=== PATIENT | female | born 1950 | race Caucasian/White ===

== ENCOUNTER 2017-10-30 13:45 | Inpatient (IN) | payer OTHER ==
[~2017-10-30] VITALS: Ht 162.6 cm; Wt 90.7 kg
[2017-10-30] MEDS ORDERED: LIPITOR40 MG PO (15:15)
[2017-10-30] MEDS ORDERED: LEVO-T50 MCG PO (15:15)
[2017-10-30] MEDS ORDERED: AVAPRO300 MG PO (15:15)
[2017-11-07] MEDS ORDERED: INTESTINEX680 M1 PO (08:04)
[2017-11-07] MEDS ORDERED: OXYC1TAB9 PO (08:04)
== END 2017-11-07 11:39 | disposition home or self-care (01) | DRG 331 ==
LOC: O/R 11-03 06:25 → SURG 11-03 06:25 → SURH 11-03 12:45 → SURG 11-03 15:46
PROVIDERS: Surgery
PROC: 0DTN4ZZ Resection of Sigmoid Colon, Percutaneous Endoscopic Approach (ICD-10-PCS; 2017-11-03)
PROC: 0DTQ4ZZ Resection of Anus, Percutaneous Endoscopic Approach (ICD-10-PCS; 2017-11-03)
PROC: 07TC4ZZ Resection of Pelvis Lymphatic, Percutaneous Endoscopic Approach (ICD-10-PCS; 2017-11-03)
PROC: 0D1N4Z4 Bypass Sigmoid Colon to Cutaneous, Percutaneous Endoscopic Approach (ICD-10-PCS; 2017-11-03)
PROC: 0WUF4JZ Supplement Abdominal Wall with Synthetic Substitute, Percutaneous Endoscopic Approach (ICD-10-PCS; 2017-11-03)
PROC: 0DTP4ZZ Resection of Rectum, Percutaneous Endoscopic Approach (ICD-10-PCS; principal; 2017-11-03 12:45)
DX: C19 Malignant neoplasm of rectosigmoid junction (principal); R59.0 Localized enlarged lymph nodes; K43.2 Incisional hernia without obstruction or gangrene

== ENCOUNTER 2018-12-22 06:15 | Day surgery (SDC) | payer OTHER ==
[~2018-12-22 06:15] MED LIST: AVAPRO300 MG PO; INTESTINEX680 M1 PO; LEVO-T50 MCG PO; LIPITOR40 MG PO; OXYC1TAB9 PO
== END 2018-12-22 10:55 | disposition home or self-care (01) ==
LOC: AMB-ENDOS 06:15
DX: C20 Malignant neoplasm of rectum (principal)

== ENCOUNTER 2020-02-22 06:00 | Day surgery (SDC) | payer OTHER | END 2020-02-22 10:50 | disposition home or self-care (01) | LOC: AMB-ENDOS 06:00 | PROVIDERS: ATTEND Surgery | DX: K62.89 Other specified diseases of anus and rectum (principal); Z20.828 Contact with and (suspected) exposure to other viral communicable diseases ==

== ENCOUNTER 2020-03-27 06:30 | Emergency (ER) | payer OTHER ==
[~2020-03-27] VITALS: Ht 165.1 cm; Wt 90.7 kg
[2020-03-27] MEDS ORDERED: CANDESARTAN CILE4 MG (06:37)
[2020-03-27] MEDS ORDERED: FAMOTIDINE20 MG (06:38)
[2020-03-27] MEDS ORDERED: ATENOLOL25 MG (06:38)
== END 2020-03-27 16:36 | disposition home or self-care (01) ==
LOC: ER 06:30
DX: R10.32 Left lower quadrant pain (principal); T85.848A Pain due to other internal prosthetic devices, implants and grafts, initial encounter; Y83.3 Surgical operation with formation of external stoma as the cause of abnormal reaction of the patient, or of later complication, without mention of misadventure at the time of the procedure; Y92.89 Other specified places as the place of occurrence of the external cause